=== PATIENT | male | born 1955 ===

== ENCOUNTER 2020-07-04 11:03 | Day surgery (SDC) | payer OTHER ==
[~2020-07-04 11:03] MED LIST: CRESTOR10 MG PO; FORTAMET1000 MG PO; UNITHROID112 MCG PO
[2020-07-04] MEDS ORDERED: PERCOCET 5-3251 EACH PO (20:10)
== END 2020-07-04 22:00 | disposition home or self-care (01) ==
LOC: CIR.AMB 11:03
PROVIDERS: ATTEND Surgery
DX: N52.8 Other male erectile dysfunction (principal); N48.6 Induration penis plastica; N43.2 Other hydrocele; Z20.822 Contact with and (suspected) exposure to COVID-19
CPT/HCPCS: 54405; 54112; 55040; C1813